=== PATIENT | female | born 1985 | race Caucasian/White ===

== ENCOUNTER 2017-04-01 09:14 | Emergency (ER) | payer SELFPAY ==
[2017-04-01 09:18] VITALS: BP 148/90; PULSE 77; TEMP 98.5; BMI 34.5
[2017-04-01] MEDS ORDERED: KETOROLAC TROMETHAMINE 60 MG/2 ML VIAL ONE (09:58)
[2017-04-01] MEDS ORDERED: KETOROLAC TROMETHAMINE 60 MG/2 ML VIAL IM ONE (10:00)
--- NOTE | 2017-04-01 10:06 | PDOC ---
History of Present Illness - General Chief Complaint: Pain Stated Complaint: RT CALF PAIN Time Seen by Provider: 04/01/17 09:19 - History of Present Illness Initial Comments: 04/01/17 10:06 Chief complaint: Right calf pain History of present illness: Pain in the right mid calf, posteriorly, for several weeks, acute exacerbation today while walking, sudden "pop" with severe pain and markedly decreased ability to ambulate adequately. Review of systems: No knee or ankle pain. Otherwise negative Social history: 6 normal childbirths, 1 pack per day smoker, no street drugs. Full-time employed as a "cataract lens generator" for eyeglasses. Family history: Reviewed and noncontributory. Physical exam: Alert and oriented well-developed well-nourished pain in the posterior mid calf, severe, with weightbearing and even minimal leg movement. Afebrile, vital signs normal including oxygen saturation 100% Lungs clear Cardiac normal Right lower extremity: There is point tenderness in the belly of the gastroc soleus complex, mid thigh, posteriorly. There is the suggestion of a deep hematoma within the muscle. There is severe pain with stretching of the muscle. Examination of the knee, popliteal fossa, and ankle are negative. Pulses are full. No demonstrable sensory or motor deficits. Measurement of both calfs within several millimeters in circumference. No edema. Impression: Chronic muscle strain, probable acute tear occurring this morning while walking. However, there is a small possibility that the acute injury is distinct from the chronic pain. Because of risk factors, rule out DVT Plan: Venous Doppler. Analgesics, muscle relaxants, compression, and nonweightbearing until orthopedic follow-up. Past History - Past Medical History Allergies/Adverse Reactions: Allergies Allergy/AdvReac Type Severity Reaction Status Date / Time No Known Allergies Allergy Verified 04/01/17 09:14 Home Medications: Ambulatory Orders No Home Medications 0 dose .ROUTE UTDICT 12/25/12 Cyclobenzaprine HCl [Flexeril 10 mg] 10 mg PO TID #15 tablet 04/01/17 Naproxen [Naprosyn] 375 mg PO BID #14 tablet 04/01/17 Asthma: No Cancer: No Cardiac Disorders: No Diabetes: No HTN: No Seizures: No Thyroid Disease: No Other medical history: DENIES - Psycho/Social/Smoking Cessation Hx Anxiety: No Suicidal Ideation: No Smoking History: Current every day smoker Have you smoked in the past 12 months: Yes Number of Cigarettes Smoked Daily: 20 Information on smoking cessation initiated: Yes 'Breaking Loose' booklet given: 04/01/17 Hx Alcohol Use: (rare) Drug/Substance Use Hx: No Hx Substance Use Treatment: No *Physical Exam - Vital Signs Last Vital Signs Temp Pulse Resp BP Pulse Ox 98.5 F 77 18 148/90 100 04/01/17 09:15 04/01/17 09:15 04/01/17 09:15 04/01/17 09:15 04/01/17 09:15 Medical Decision Making - Medical Decision Making 04/01/17 11:02 Venous Doppler is negative. Signs and symptoms overwhelmingly favor a torn muscle Skyler wrap applied. No distal numbness or tingling after application. Patient comfortable. Pulses full. Capillary refill intact Patient was given crutches. She is adequately ambulating with the crutches. Nonweightbearing until orthopedic follow-up 1 week. Heat and anti-inflammatory medications recommended. Pain is much improved after administration of Toradol *DC/Admit/Observation/Transfer Diagnosis at time of Disposition: Muscle tear - Discharge Dispostion Disposition: HOME Condition at time of disposition: Improved Admit: No - Prescriptions Prescriptions: Cyclobenzaprine HCl [Flexeril 10 mg] 10 mg PO TID #15 tablet Naproxen [Naprosyn] 375 mg PO BID #14 tablet - Referrals Referrals: Thor Granado MD [Staff Physician] - 1 week - Patient Instructions Printed Discharge Instructions: DI for Calf Muscle Strain - Post Discharge Activity Work/School Note: Back to Work
== END 2017-04-01 11:20 | disposition home or self-care (01) ==
LOC: FER 09:14
PROC: 3E0233Z Introduction of Anti-inflammatory into Muscle, Percutaneous Approach (ICD-10-PCS; principal; 2017-04-01)
DX: T14.8 Other injury of unspecified body region (principal); X58.XXXA Exposure to other specified factors, initial encounter; Y93.9 Activity, unspecified; Y92.9 Unspecified place or not applicable; F17.210 Nicotine dependence, cigarettes, uncomplicated
CPT/HCPCS: 93971-TC; 99283-25

== ENCOUNTER 2023-03-07 18:08 | Inpatient (IN) | payer OTHER ==
[2023-03-07] MEDS ORDERED: ACETAMINOPHEN 1000 MG/100 ML BAG IVPB ONE (19:38)
[2023-03-07] MEDS ORDERED: FAMOTIDINE 20 MG/50 ML IVPB 20 MG/50 ML MG IVPB ONE ×2 (19:40→20:50)
[2023-03-07] MEDS ORDERED: LACTATED RINGERS SOLUTION 1000 ML INFUS.BAG IV ONE (19:41)
[2023-03-07] MEDS ORDERED: ACETAMINOPHEN INJECTION 100 ML IVPB ONE (19:45)
[2023-03-07 20:25] LABS: BASO % 0.5 % (0-2.0); EOS % 1.8 % (0-4.5); HEMATOCRIT 42.5 % (32.4-45.2); HEMOGLOBIN 14.5 GM/dL (10.7-15.3); LYMPH % 21.2 % (8-40); MCH 28.3 pg (25.7-33.7); MCHC 34.2 g/dl (32.0-36.0); MEAN CELL VOLUME 82.8 fl (80-96); MEAN PLT VOLUME 7.3 fl (7.5-11.1); MONO % 5.1 % (3.8-10.2); NEUT % 71.4 % (42.8-82.8); PLATELET COUNT 274 10^3/uL (134-434); RBC 5.14 M/mm3 (3.60-5.2); RDW 13.3 % (11.6-15.6); WHITE BLOOD COUNT 14.8 K/mm3 (4.0-10.0)
[2023-03-07 20:33] LABS: URINE APPEARANCE CLEAR; URINE BILIRUBIN NEGATIVE (NEGATIVE); URINE COLOR YELLOW; URINE GLUCOSE (UA) NEGATIVE (NEGATIVE); URINE KETONE NEGATIVE (NEGATIVE); URINE LEUK ESTERASE NEGATIVE (NEGATIVE); URINE NITRITE NEGATIVE (NEGATIVE); URINE PROTEIN NEGATIVE (NEGATIVE); URINE UROBILINOGEN 0.2 mg/dL (0.2-1.0)
[2023-03-07 20:35] LABS: INR 0.99 (0.83-1.09); PROTHROMBIN TIME (PATIENT) 11.5 SEC (9.7-13.0)
[2023-03-07 20:36] LABS: EPI CELLS 0 /uL (0-25.1); HYALINE CASTS 0 /uL (0-3.1); URINE BACTERIA 17 /uL (0-1359); URINE RBC 1 /uL (0-23.9); URINE WBC 0 /uL (0-25.8)
[2023-03-07 20:37] LABS: ACTIVATED PTT 32.5 SECONDS (25.2-36.5)
[2023-03-07 21:01] LABS: CALCIUM 9.3 mg/dL (8.5-10.1)
[2023-03-07 21:02] LABS: ALBUMIN 3.8 g/dl (3.4-5.0); BLOOD UREA NITROGEN 7.2 mg/dL (7-18); MAGNESIUM 2.8 mg/dL (1.8-2.4)
[2023-03-07 21:05] LABS: CREATININE 0.7 mg/dL (0.55-1.3)
[2023-03-07 21:06] LABS: BILIRUBIN,TOTAL 0.3 mg/dL (0.2-1); TOT PROT 7.8 g/dl (6.4-8.2)
[2023-03-07 21:16] LABS: URINE CRYSTALS AMORPHOUS PHOSPHATES /hpf
[2023-03-07] MEDS ORDERED: morphine SULFATE 4 MG/ML VIAL IVPUSH ONE (22:51)
[2023-03-07] MEDS ORDERED: CEFTRIAXONE 1,000 MG in DEXTROSE 5%-WATER - 50 ML IVPB ONE (23:35)
[2023-03-07] MEDS ORDERED: CEFTRIAXONE 1 GM/50 ML BAG ONE (23:55)
[2023-03-07] MEDS ORDERED: morphine SULFATE 4 MG/ML VIAL ONE (23:57)
[2023-03-08] MEDS ORDERED: ACETAMINOPHEN 1000 MG/100 ML BAG IVPB PRN ×2 (00:56→09:29)
[2023-03-08] MEDS ORDERED: DEXTROSE 5%-NORMAL SALINE 1,000 ML IV SCH (01:00)
[2023-03-08] MEDS ORDERED: LACTATED RINGERS SOLUTION 1,000 ML/1,000 ML INFUS.BAG IV SCH (01:45)
[2023-03-08 05:47] VITALS: BMI 34.0
[2023-03-08 09:10] LABS: BASO % 0.6 % (0-2.0); HEMATOCRIT 37.8 % (32.4-45.2); HEMOGLOBIN 13.2 GM/dL (10.7-15.3); LYMPH % 28.2 % (8-40); MCH 28.8 pg (25.7-33.7); MEAN CELL VOLUME 82.3 fl (80-96); MEAN PLT VOLUME 7.6 fl (7.5-11.1); MONO % 5.3 % (3.8-10.2); NEUT % 62.9 % (42.8-82.8); PLATELET COUNT 218 10^3/uL (134-434); RBC 4.59 M/mm3 (3.60-5.2); RDW 13.2 % (11.6-15.6); WHITE BLOOD COUNT 8.8 K/mm3 (4.0-10.0)
[2023-03-08 09:14] LABS: INR 1.05 (0.83-1.09); PROTHROMBIN TIME (PATIENT) 12.2 SEC (9.7-13.0)
[2023-03-08 09:17] LABS: ACTIVATED PTT 30.4 SECONDS (25.2-36.5)
[2023-03-08 09:34] LABS: BLOOD UREA NITROGEN 6.2 mg/dL (7-18); MAGNESIUM 2.3 mg/dL (1.8-2.4)
[2023-03-08 09:37] LABS: CREATININE 0.7 mg/dL (0.55-1.3)
[2023-03-08 09:39] LABS: BILIRUBIN,TOTAL 0.5 mg/dL (0.2-1); TOT PROT 6.2 g/dl (6.4-8.2)
[2023-03-08] MEDS ORDERED: NICOTINE 14 MG/24 HOURS TOPICAL PATCH TD SCH (10:00)
[2023-03-08] MEDS ORDERED: CEFTRIAXONE 1 GM in DEXTROSE 5%-WATER - 50 ML IVPB SCH (10:00)
[2023-03-08] MEDS ORDERED: MIDAZOLAM HCL 2 MG/2 ML SINGLE DOSE VIAL ONE (10:32)
[2023-03-08] MEDS ORDERED: BUPIVACAINE HCL/PF 0.5% (5MG/ML) 10 ML VIAL ONE (10:37)
[2023-03-08] MEDS ORDERED: SUCCINYLCHOLINE CHLORIDE 200 MG/10 ML SYRINGE ONE (11:23)
[2023-03-08] MEDS ORDERED: ROCURONIUM BROMIDE 50 MG/5 ML SYRINGE ONE (11:23)
[2023-03-08] MEDS ORDERED: PROPOFOL 20 ML ONE (11:23)
[2023-03-08] MEDS ORDERED: BUPIVACAINE HCL/PF 0.5% (5 MG/ML) 30 ML VIAL IJ ONE (12:03)
[2023-03-08] MEDS ORDERED: SODIUM CHLORIDE 1,000 ML IV SCH (12:30)
[2023-03-08] MEDS ORDERED: oxyCODONE HCL 5 MG TABLET PO PRN (12:38)
[2023-03-08] MEDS: NICOTINE 14 MG/24 HOURS TOPICAL PATCH TD SCH (14:18)
[2023-03-08] MEDS: SODIUM CHLORIDE 1,000 ML IV SCH (15:32)
[2023-03-08] MEDS: oxyCODONE HCL 5 MG TABLET PO PRN (17:03)
[2023-03-08] MEDS: ACETAMINOPHEN 500 MG TABLET (FP) PO SCH (20:53)
[2023-03-08] MEDS ORDERED: IBUPROFEN 600 MG TABLET (FP) PO PRN (21:00)
[2023-03-09] MEDS: ACETAMINOPHEN 500 MG TABLET (FP) PO SCH ×3 (02:25→14:04)
[2023-03-09 05:41] VITALS: RESP 18; TEMP 98.5
[2023-03-09] MEDS ORDERED: NICOTINE 14 MG/24 HOURS TOPICAL PATCH TD SCH (10:00)
[2023-03-09] MEDS: NICOTINE 14 MG/24 HOURS TOPICAL PATCH TD SCH (10:07)
[2023-03-09 10:36] LABS: BASO % 0.5 % (0-2.0); EOS % 3.6 % (0-4.5); HEMATOCRIT 35.6 % (32.4-45.2); HEMOGLOBIN 12.3 GM/dL (10.7-15.3); MCH 28.9 pg (25.7-33.7); MCHC 34.6 g/dl (32.0-36.0); MEAN CELL VOLUME 83.5 fl (80-96); MEAN PLT VOLUME 8.1 fl (7.5-11.1); MONO % 6.1 % (3.8-10.2); NEUT % 62.8 % (42.8-82.8); PLATELET COUNT 198 10^3/uL (134-434); RBC 4.26 M/mm3 (3.60-5.2); RDW 13.4 % (11.6-15.6); WHITE BLOOD COUNT 6.6 K/mm3 (4.0-10.0)
[2023-03-09 11:03] LABS: BLOOD UREA NITROGEN 5.7 mg/dL (7-18); CALCIUM 8.3 mg/dL (8.5-10.1)
[2023-03-09 11:04] LABS: ALBUMIN 2.8 g/dl (3.4-5.0); MAGNESIUM 2.2 mg/dL (1.8-2.4)
[2023-03-09 11:06] LABS: CREATININE 0.7 mg/dL (0.55-1.3)
[2023-03-09 11:07] LABS: BILIRUBIN,TOTAL 0.4 mg/dL (0.2-1)
[2023-03-09] MEDS: oxyCODONE HCL 5 MG TABLET PO PRN (12:08)
[2023-03-09] MEDS: SODIUM CHLORIDE 1,000 ML IV SCH (14:06)
[2023-03-09] MEDS ORDERED: CYCLOBENZAPRINE HCL 5 MG TABLET PO ONE (14:20)
[2023-03-09] MEDS ORDERED: LIDOCAINE 5% TOPICAL PATCH TP SCH (14:30)
[2023-03-09 14:52] VITALS: BP 131/63; PULSE 72
[2023-03-09] MEDS ORDERED: LIDOCAINE PATCH REMOVAL MC SCH (22:00)
== END 2023-03-09 18:00 | disposition home or self-care (01) | DRG 225 ==
LOC: JER 18:08 → JERBED 23:37 → J6S 03-08 05:17
PROVIDERS: ADMIT Internal Medicine; ATTEND Internal Medicine
PROC: 0DTJ4ZZ Resection of Appendix, Percutaneous Endoscopic Approach (ICD-10-PCS; principal; 2023-03-08 09:30)
DX: K35.80 Unspecified acute appendicitis (principal); F17.210 Nicotine dependence, cigarettes, uncomplicated; E66.9 Obesity, unspecified; Z68.34 Body mass index [BMI] 34.0-34.9, adult
CPT/HCPCS: 0241U-QW; 36415; 74177-TC; 76830-TC; 80048; 80053; 81003; 83605; 83690; 83735; 84100; 84703; 85025; 85610; 85730; 86850; 86900; 86901; 87081; 87086; 88304-TC; 93005; 93010; 94760; 99285-25; C9803-CS; Q9967; U0003; U0005

== ENCOUNTER 2023-12-16 10:34 | Emergency (ER) | payer OTHER ==
[2023-12-16 11:00] VITALS: TEMP 98.2; BMI 36.3
[2023-12-16] MEDS ORDERED: predniSONE 20 MG TABLET (UD) PO ONE (11:15)
[2023-12-16] MEDS ORDERED: ACETAMINOPHEN 1000 MG/100 ML BAG IVPB ONE (11:15)
[2023-12-16] MEDS ORDERED: ALBUTEROL SO4 2.5/IPRATROPIUM 0.5 INH SOL 3 ML VIAL.NEB. NEB ONE ×2 (11:15→11:55)
[2023-12-16] MEDS ORDERED: SODIUM CHLORIDE 1,000 ML IV STA (11:15)
[2023-12-16] MEDS ORDERED: ACETAMINOPHEN INJECTION 100 ML IVPB ONE (11:55)
[2023-12-16] MEDS ORDERED: predniSONE 20 MG TABLET (UD) ONE (11:56)
[2023-12-16 12:03] LABS: BASO % 0.4 % (0-2.0); HEMATOCRIT 40.2 % (32.4-45.2); LYMPH % 13.8 % (8-40); MCH 26.2 pg (25.7-33.7); MCHC 32.2 g/dl (32.0-36.0); MEAN CELL VOLUME 81.3 fl (80-96); MEAN PLT VOLUME 7.2 fl (7.5-11.1); MONO % 5.3 % (3.8-10.2); NEUT % 79.5 % (42.8-82.8); PLATELET COUNT 333 10^3/uL (134-434); RBC 4.95 M/mm3 (3.60-5.2); RDW 14.8 % (11.6-15.6); WHITE BLOOD COUNT 16.5 K/mm3 (4.0-10.0)
[2023-12-16 12:32] LABS: POTASSIUM 4.2 mmol/L (3.5-5.1)
[2023-12-16 12:34] LABS: CALCIUM 9.3 mg/dL (8.5-10.1)
[2023-12-16 12:35] LABS: ALBUMIN 3.4 g/dl (3.4-5.0); BLOOD UREA NITROGEN 9.4 mg/dL (7-18)
[2023-12-16 12:38] LABS: CREATININE 0.7 mg/dL (0.55-1.3)
[2023-12-16 12:39] LABS: BILIRUBIN,TOTAL 0.2 mg/dL (0.2-1); TOT PROT 7.8 g/dl (6.4-8.2)
[2023-12-16 14:15] VITALS: BP 116/73; PULSE 78; RESP 19
== END 2023-12-16 14:23 | disposition home or self-care (01) ==
LOC: JERFT 10:34
PROC: 3E033NZ Introduction of Analgesics, Hypnotics, Sedatives into Peripheral Vein, Percutaneous Approach (ICD-10-PCS; principal; 2023-12-16)
PROC: 3E0337Z Introduction of Electrolytic and Water Balance Substance into Peripheral Vein, Percutaneous Approach (ICD-10-PCS; 2023-12-16)
PROC: 3E0F7GC Introduction of Other Therapeutic Substance into Respiratory Tract, Via Natural or Artificial Opening (ICD-10-PCS; 2023-12-16)
DX: R09.89 Other specified symptoms and signs involving the circulatory and respiratory systems (principal); R05.9 Cough, unspecified; R61 Generalized hyperhidrosis; R68.83 Chills (without fever); J18.9 Pneumonia, unspecified organism; Z20.822 Contact with and (suspected) exposure to COVID-19
CPT/HCPCS: 0241U-QW; 36415; 71046-TC-FY; 71250-TC; 80053; 84484; 84703; 85025; 93005; 93010; 99285-25

== ENCOUNTER 2025-04-09 18:16 | Emergency (ER) | payer OTHER ==
[2025-04-09 18:23] VITALS: TEMP 98.2; BMI 38.0
[2025-04-09] MEDS ORDERED: KETOROLAC TROMETHAMINE 15 MG/ML VIAL ONE (20:16)
[2025-04-09] MEDS: KETOROLAC TROMETHAMINE 15 MG/ML VIAL IVPUSH ONE (20:57)
[2025-04-09] MEDS: LACTATED RINGERS SOLUTION 1,000 ML/1,000 ML INFUS.BAG IV SCH (20:58)
[2025-04-09 21:07] LABS: ABSOLUTE IMMATURE GRANULOCYTES 0.04 x10^3/uL (0.0-0.031); BASOPHILS # 0.04 x10^3/uL (0.01-0.08); EOSINOPHIL % 1.3 % (0.7-5.8); EOSINOPHILS # 0.15 x10^3/uL (0.04-0.36); HEMATOCRIT 41.2 % (34.1-44.9); HEMOGLOBIN 12.6 g/dL (11.2-15.7); MCHC 30.6 g/dl (32.2-35.5); MEAN CELL VOLUME 78.8 fl (79.4-94.8); MEAN PLT VOLUME 9.3 fl (9.4-12.3); MONOCYTE # 0.63 x10^3/uL (0.24-0.86); MONOCYTE % 5.3 % (4.7-12.5); PLATELET COUNT 333 x10^3/uL (182-369); RDW 14.5 % (12.1-16.8)
[2025-04-09 21:09] LABS: URINE APPEARANCE CLOUDY; URINE BILIRUBIN NEGATIVE (NEGATIVE); URINE COLOR YELLOW; URINE GLUCOSE (UA) NEGATIVE (NEGATIVE); URINE KETONE TRACE (NEGATIVE); URINE LEUK ESTERASE NEGATIVE (NEGATIVE); URINE NITRITE NEGATIVE (NEGATIVE); URINE PROTEIN TRACE (NEGATIVE); URINE UROBILINOGEN 0.2 mg/dL (0.2-1.0)
[2025-04-09 21:11] LABS: INR 1.01 (0.83-1.09); PROTHROMBIN TIME (PATIENT) 11.1 SEC (9.7-13.0)
[2025-04-09 21:14] LABS: ACTIVATED PTT 32.1 SECONDS (25.2-36.5)
[2025-04-09 21:27] LABS: POTASSIUM 4.8 mmol/L (3.5-5.1)
[2025-04-09 21:30] LABS: ALBUMIN 3.9 g/dl (3.4-5.0); BLOOD UREA NITROGEN 7.6 mg/dL (7-18); CALCIUM 9.9 mg/dL (8.5-10.1)
[2025-04-09 21:33] LABS: CREATININE 0.9 mg/dL (0.55-1.3)
[2025-04-09 21:35] LABS: BILIRUBIN,TOTAL 0.2 mg/dL (0.2-1)
[2025-04-09 21:36] LABS: TOT PROT 7.7 g/dl (6.4-8.2)
[2025-04-09 22:20] LABS: HCV DIAGNOSTIC IN-HOUSE W/RFLX NON-REACTIVE (NONREACTIVE); HIV INTERPRETATION NEGATIVE (NEGATIVE)
[2025-04-10 02:55] VITALS: BP 117/64; PULSE 75; RESP 14
== END 2025-04-10 03:25 | disposition home or self-care (01) ==
LOC: JER 18:16
PROC: 3E0333Z Introduction of Anti-inflammatory into Peripheral Vein, Percutaneous Approach (ICD-10-PCS; principal; 2025-04-09)
DX: K80.20 Calculus of gallbladder without cholecystitis without obstruction (principal); K57.30 Diverticulosis of large intestine without perforation or abscess without bleeding; R10.32 Left lower quadrant pain; R05.9 Cough, unspecified; R19.7 Diarrhea, unspecified; R68.83 Chills (without fever)
CPT/HCPCS: 36415; 71046-TC-FY; 74176-TC; 76830-TC; 80053; 81003; 83690; 84703; 85025; 85610; 85730; 86803; 87086; 87389; 87899; 99285-25